=== PATIENT | female | born 1980 | race Two or more races ===

== ENCOUNTER 2017-05-06 17:05 | Emergency (ER) | payer SELFPAY ==
[~2017-05-06] VITALS: Ht 167.6 cm; Wt 127.0 kg
[2017-05-06 17:10] VITALS: BP 137/84
--- NOTE | 2017-05-06 17:30 | NUR ---
URINE SAMPLE OBTAINED, SENT.
[2017-05-06 17:39] LABS: APPEARANCE,URINE Clear (CLEAR); BILIRUBIN,URINE Negative (NEGATIVE); BLOOD, URINE Small Ery/uL (NEGATIVE); COLOR,URINE Yellow (YELLOW); KETONES,URINE Negative (NEGATIVE); LEUKOCYTE ESTERASE ,URINE Small (NEGATIVE); NITRITE, URINE Negative (NEGATIVE); PROTEIN,URINE Negative (NEGATIVE); UGLUCOSE Negative (NEGATIVE)
[2017-05-06 17:40] LABS: PREGNANCY TEST URINE QUAL NEGATIVE (NEGATIVE)
[2017-05-06 17:57] LABS: BACTERIA,URINE None seen /HPF (None Seen); SQUAMOUS EPITHELIAL CELL,UR Moderate /HPF (None Seen)
== END 2017-05-06 18:19 | disposition home or self-care (01) ==
LOC: ER 17:09
DX: N30.00 Acute cystitis without hematuria (principal); I10 Essential (primary) hypertension
CPT/HCPCS: 81000-TC; 84703-TC; A4606; Z7610

== ENCOUNTER 2017-08-05 09:15 | Emergency (ER) | payer MEDICAID ==
[~2017-08-05] VITALS: Ht 170.2 cm; Wt 129.3 kg
--- NOTE | 2017-08-05 09:20 | NUR ---
PRESENTS TO ER STATING SHE WOKE UP THIS AM W/ PUFFINESS TO BOTH EYES ~GOING ON FOR THE LAST 3 MOS. C/O SOB AND FEELING OF NECK TIGHTNESS FOR THE LAST HOUR. A/OX 4. BREATHING EVEN AND UNLABORED. VITALS STABLE. SAFETY AND COMFORT MEASURES IN PLACE. AWAITING MD ORDERS.
--- NOTE | 2017-08-05 09:25 | NUR ---
NEW IV STARTED ON LAC, 20 G. BLOOD DRAWN AND SENT TO LAB.
[2017-08-05] MEDS ORDERED: methylPREDNISolone SOD SUCC 125 MG/2ML VIAL ONE (09:27)
[2017-08-05] MEDS ORDERED: diphenhydrAMINE HCL 50 MG/ML VIAL ONE (09:27)
[2017-08-05] MEDS ORDERED: FAMOTIDINE/PF INJ 40 MG in IV D5W 250 ML IV ONE (09:30)
[2017-08-05] MEDS ORDERED: IV NS 0.9% 1,000 ML BAG IV ONE (09:30)
[2017-08-05] MEDS ORDERED: methylPREDNISolone SOD SUCC 125 MG/2ML VIAL IV ONE (09:30)
[2017-08-05] MEDS ORDERED: FAMOTIDINE/PF INJ 20 MG/2 ML VIAL IV ONE (09:30)
[2017-08-05] MEDS ORDERED: diphenhydrAMINE HCL 50 MG/ML VIAL IV ONE (09:30)
--- NOTE | 2017-08-05 09:39 | NUR ---
PATIENT MEDICATED PER MD ORDERS. PER REYNA HUNTER TO GIVEN FAMOTIDINE 40 MG SLOW IV PUSH.
[2017-08-05 09:41] LABS: BASOPHILS # (AUTO) 0.1 /CMM (0.0-0.2); BASOPHILS % (AUTO) 0.5 % (0.0-2.0); EOSINOPHILS # (AUTO) 0.1 /CMM (0.0-0.7); EOSINOPHILS % (AUTO) 1.4 % (0.0-6.0); HEMATOCRIT 39 % (33-45); HEMOGLOBIN 12.6 g/dL (11.5-14.8); LYMPHOCYTES # (AUTO) 2.5 /CMM (0.8-4.8); LYMPHOCYTES % (AUTO) 24.1 % (20.0-44.0); MEAN CORPUSCULAR HEMOGLOBIN 22 PG (26.0-33.0); MEAN CORPUSCULAR HGB CONC 32 g/dl (31.0-36.0); MEAN CORPUSCULAR VOLUME 70 fL (82-100); MONOCYTES # (AUTO) 0.6 /CMM (0.1-1.30); MONOCYTES % (AUTO) 5.4 % (2.0-12.0); NEUTROPHILS # (AUTO) 7.2 /CMM (1.8-8.9); NEUTROPHILS % (AUTO) 68.6 % (43.0-81.0); PLATELET COUNT (AUTO) 289 /CMM (150-450); RED BLOOD CELL COUNT(AUTO) 5.62 MIL/uL (4.0-5.2); WHITE BLOOD COUNT (AUTO) 10.5 K/uL (4.3-11.0)
[2017-08-05 09:50] LABS: CALCIUM, SERUM 8.2 mg/dL (8.5-10.1); CREATININE 0.7 mg/dL (0.6-1.3); POTASSIUM 3.9 mmol/L (3.5-5.1)
--- NOTE | 2017-08-05 13:13 | NUR ---
IV removed. Catheter intact and site benign. Pressure and 4x4 applied to site. No bleeding noted. Patient discharged to home in stable condition. Written and verbal after care instructions given. Patient verbalizes understanding of instruction.
[2017-08-05 13:15] VITALS: BP 138/64
== END 2017-08-05 13:16 | disposition home or self-care (01) ==
LOC: ER 09:17
DX: T78.40XA Allergy, unspecified, initial encounter (principal)
CPT/HCPCS: 36415; 71010; 80048; 84703; 85025; 96361; 96374; 96375; 99285; A4606; J1200; J2930; J3490; J7030; Z7610

== ENCOUNTER 2018-01-27 10:27 | Emergency (ER) | payer MEDICAID ==
[~2018-01-27] VITALS: Ht 170.2 cm; Wt 83.9 kg
--- NOTE | 2018-01-27 10:32 | NUR ---
PAIN TO L WRIST AND UPPER ARM X 2 DAYS, DENIES ANY INJURY
[2018-01-27 11:01] VITALS: BP 130/80
--- NOTE | 2018-01-27 11:01 | NUR ---
Patient discharged to home in stable condition. Written and verbal after care instructions given. Patient verbalizes understanding of instruction.
== END 2018-01-27 11:02 | disposition home or self-care (01) ==
LOC: ER 10:31
DX: R20.2 Paresthesia of skin (principal)
CPT/HCPCS: A4606; Z7610

== ENCOUNTER 2018-03-08 00:05 | Emergency (ER) | payer MEDICAID ==
[~2018-03-08] VITALS: Ht 165.1 cm; Wt 90.7 kg
--- NOTE | 2018-03-08 00:23 | NUR ---
"HEADACHE X3 DAYS AND BEEN IN MY PERIODS FOR 3 MONTHS". "FEELING DIZZY". PT AMBULATED TO BED WITH A STEADY GAIT. PT PLACED ON MONITOR WITH VS WNL. PT RESTING IN BED IN NO ACUTE DISTRESS. AWAITING MD AGUILA.
[2018-03-08] MEDS ORDERED: METOCLOPRAMIDE HCL 10 MG/2 ML VIAL ONE (00:53)
[2018-03-08 00:59] LABS: BASOPHILS % (AUTO) 0.5 % (0.0-2.0); EOSINOPHILS % (AUTO) 1.7 % (0.0-6.0); LYMPHOCYTES # (AUTO) 2.3 /CMM (0.8-4.8); LYMPHOCYTES % (AUTO) 26.8 % (20.0-44.0); MEAN CORPUSCULAR HGB CONC 32 g/dl (31.0-36.0); MEAN CORPUSCULAR VOLUME 72 fL (82-100); MONOCYTES # (AUTO) 0.6 /CMM (0.1-1.30); NEUTROPHILS # (AUTO) 5.4 /CMM (1.8-8.9); PLATELET COUNT (AUTO) 317 /CMM (150-450); RED BLOOD CELL COUNT(AUTO) 2.83 MIL/uL (4.0-5.2); WHITE BLOOD COUNT (AUTO) 8.5 K/uL (4.3-11.0)
[2018-03-08] MEDS ORDERED: IV NS 0.9% 1,000 ML BAG IV ONE (01:00)
[2018-03-08] MEDS ORDERED: METOCLOPRAMIDE HCL 10 MG/2 ML VIAL IV ONE (01:00)
[2018-03-08 01:03] LABS: HEMATOCRIT 20 % (33-45); HEMOGLOBIN 6.4 g/dL (11.5-14.8)
[2018-03-08 01:08] LABS: CALCIUM, SERUM 8.7 mg/dL (8.5-10.1); CREATININE 0.8 mg/dL (0.6-1.3); POTASSIUM 3.8 mmol/L (3.5-5.1)
--- NOTE | 2018-03-08 02:07 | NUR ---
ULTRA SOUND TECH AT BEDSIDE.
--- NOTE | 2018-03-08 02:51 | NUR ---
US TECH LEFT BEDSIDE. AWAITING RESULTS.
[2018-03-08 03:09] LABS: APPEARANCE,URINE TURBID (CLEAR); BILIRUBIN,URINE NEGATIVE (NEGATIVE); BLOOD, URINE 3+ Ery/uL (NEGATIVE); COLOR,URINE RED (YELLOW); KETONES,URINE NEGATIVE (NEGATIVE); LEUKOCYTE ESTERASE ,URINE TRACE (NEGATIVE); NITRITE, URINE NEGATIVE (NEGATIVE); PROTEIN,URINE 2+ mg/dl (NEGATIVE); UGLUCOSE NEGATIVE (NEGATIVE); UROBILINOGEN,URINE 0.2 EU/dL (0.2)
[2018-03-08 03:12] LABS: BACTERIA,URINE Few /HPF (None Seen); RBC,URINE TOO NUMEROUS TO COUN /HPF (0-2); SQUAMOUS EPITHELIAL CELL,UR Few /HPF (None Seen)
--- NOTE | 2018-03-08 03:14 | NUR ---
1 UNIT PRBC STARTED.
--- NOTE | 2018-03-08 03:50 | NUR ---
1ST UNIT PRBC FINISHED WITH NO ADVERSE REACTIONS NOTED.
--- NOTE | 2018-03-08 04:05 | NUR ---
2ND UNIT PRBC STARTED.
--- NOTE | 2018-03-08 04:35 | NUR ---
2ND UNIT OF PRBC FINISHED WITH NO ADVERSE REACTIONS NOTED.
[2018-03-08 05:11] LABS: BASOPHILS % (AUTO) 0.4 % (0.0-2.0); EOSINOPHILS % (AUTO) 1.9 % (0.0-6.0); HEMATOCRIT 24 % (33-45); HEMOGLOBIN 7.6 g/dL (11.5-14.8); LYMPHOCYTES # (AUTO) 2.2 /CMM (0.8-4.8); LYMPHOCYTES % (AUTO) 25.4 % (20.0-44.0); MEAN CORPUSCULAR HGB CONC 32 g/dl (31.0-36.0); MEAN CORPUSCULAR VOLUME 77 fL (82-100); MONOCYTES # (AUTO) 0.6 /CMM (0.1-1.30); MONOCYTES % (AUTO) 7.5 % (2.0-12.0); NEUTROPHILS # (AUTO) 5.6 /CMM (1.8-8.9); NEUTROPHILS % (AUTO) 64.8 % (43.0-81.0); PLATELET COUNT (AUTO) 290 /CMM (150-450); RDW COEFFICIENT OF VARIATION 18.4 (11.5-15.0); RED BLOOD CELL COUNT(AUTO) 3.12 MIL/uL (4.0-5.2); WHITE BLOOD COUNT (AUTO) 8.7 K/uL (4.3-11.0)
[2018-03-08 05:35] LABS: EOSINOPHILS % (MANUAL) 1 % (0-4); LYMPHOCYTES % (MANUAL) 29 % (16-48); MONOCYTES % (MANUAL) 5 % (0-11.0); NEUTROPHILS % (MANUAL) 65 (42-76)
--- NOTE | 2018-03-08 05:50 | NUR ---
Patient discharged to home in stable condition. Written and verbal after care instructions given. Patient verbalizes understanding of instruction. pt. ambulatory with a steady gait. pt left hospital in stable condition with .
[2018-03-08 05:51] VITALS: BP 122/74
== END 2018-03-08 05:53 | disposition home or self-care (01) ==
LOC: ER 00:08
DX: D25.9 Leiomyoma of uterus, unspecified (principal); D64.9 Anemia, unspecified; N83.201 Unspecified ovarian cyst, right side
CPT/HCPCS: 36415; 71045-TC; 76856-TC; 80048-TC; 81000-TC; 83880; 85025-TC; 86850-TC; 86921-TC; 87081-TC; A4606; J2765; J7030; J7050; P9016-BL; Z7610

== ENCOUNTER 2018-10-22 22:16 | Emergency (ER) | payer MEDICAID, OTHER ==
[~2018-10-22] VITALS: Ht 170.2 cm; Wt 124.7 kg
--- NOTE | 2018-10-22 22:40 | NUR ---
PT PRESENTED TO THE ER WITH A C/O NECK PAIN AND HEADACHE S/P TRIP AND FALL OVER CARPET AT WORK AT 2110 TONIGHT. PT STATED THAT SHE "BLACKED OUT" (ACCORDING TO HER SON) WHEN SHE HIT HER HEAD ON THE WALL. PT AMBULATED TO ER 2 AND IS AWAITING EVALUATION.
[2018-10-22] MEDS ORDERED: DIAZEPAM 5 MG TABLET ONE (23:21)
[2018-10-22] MEDS ORDERED: HYDROCODONE/APAP 5/325MG 1 EACH TABLET ONE (23:22)
[2018-10-22] MEDS ORDERED: DIAZEPAM 10 MG TABLET PO ONE (23:30)
[2018-10-22] MEDS ORDERED: HYDROCODONE/APAP 5/325MG 1 EACH TABLET PO ONE (23:30)
--- NOTE | 2018-10-23 00:08 | NUR ---
PT RETURNED FROM CT.
[2018-10-23] MEDS ORDERED: KETOROLAC TROMETHAMINE INJ 30 MG/ML VIAL ONE (01:10)
--- NOTE | 2018-10-23 01:26 | NUR ---
Patient discharged to home in stable condition. Written and verbal after care instructions given. Patient verbalizes understanding of instruction AND RX. PT AMBULATED OUT WITH A STEADY GAIT. PT'S SON IS PICKING HER UP. PT WAS INSTRUCTED NOT TO DRIVE. VSS.
--- NOTE | 2018-10-23 01:28 | NUR ---
PT REC'D CHIKIS WRAPS TO BILATERAL KNEES.
[2018-10-23] MEDS ORDERED: KETOROLAC TROMETHAMINE INJ 60 MG/2 ML VIAL IM ONE (01:30)
[2018-10-23 01:33] VITALS: BP 138/89
== END 2018-10-23 01:34 | disposition home or self-care (01) ==
LOC: ER 22:23
DX: S13.4XXA Sprain of ligaments of cervical spine, initial encounter (principal); S80.02XA Contusion of left knee, initial encounter; S80.01XA Contusion of right knee, initial encounter; S09.8XXA Other specified injuries of head, initial encounter; F41.9 Anxiety disorder, unspecified; E66.01 Morbid (severe) obesity due to excess calories; Z68.41 Body mass index [BMI] 40.0-44.9, adult; W18.09XA Striking against other object with subsequent fall, initial encounter; Y93.89 Activity, other specified; Y92.89 Other specified places as the place of occurrence of the external cause; Y99.0 Civilian activity done for income or pay
CPT/HCPCS: 70450-TC; 72125-TC; 73560-TC; J1885

== ENCOUNTER 2019-04-02 22:06 | Emergency (ER) | payer MEDICAID, OTHER ==
[~2019-04-02] VITALS: Ht 170.2 cm; Wt 127.0 kg
--- NOTE | 2019-04-02 23:06 | NUR ---
BIBS. C/O "HAVING FLU LIKE SYMPTOMS FOR AROUND 3X WEEKS, THEY WONT GO AWAY" -SOB NOTED -N/V AOX4. AMBULATORY VSS.
[2019-04-02] MEDS ORDERED: IPRATROPIUM NEB FS 0.5 MG/2.5 ML AMPUL.NEB NEB ONE (23:30)
[2019-04-02] MEDS ORDERED: ALBUTEROL FS 2.5 MG/3 ML VIAL.NEB NEB ONE (23:30)
[2019-04-02] MEDS ORDERED: IPRATROPIUM NEB FS 0.5 MG/2.5 ML AMPUL.NEB ONE (23:42)
[2019-04-02] MEDS ORDERED: ALBUTEROL FS 2.5 MG/3 ML VIAL.NEB ONE (23:42)
[2019-04-03 02:18] VITALS: BP 134/99
== END 2019-04-03 02:18 | disposition home or self-care (01) ==
LOC: ER 22:06
DX: J45.909 Unspecified asthma, uncomplicated (principal); H10.10 Acute atopic conjunctivitis, unspecified eye; R00.0 Tachycardia, unspecified; Z90.710 Acquired absence of both cervix and uterus
CPT/HCPCS: 71045-TC

== ENCOUNTER 2021-03-11 12:44 | Emergency (ER) | payer MEDICAID ==
[~2021-03-11] VITALS: Ht 162.6 cm; Wt 140.6 kg
[2021-03-11 12:56] VITALS: BP 157/96
[2021-03-11] MEDS ORDERED: AZIT250T PO (13:06)
[2021-03-11] MEDS ORDERED: ALBU8.5H8 INH (13:06)
[2021-03-11] MEDS ORDERED: ALBU0.633 NEB (13:06)
== END 2021-03-11 13:20 | disposition home or self-care (01) ==
LOC: ER 12:46
DX: J45.909 Unspecified asthma, uncomplicated (principal)

== ENCOUNTER 2021-07-16 12:15 | Emergency (ER) | payer MEDICAID ==
[~2021-07-16] VITALS: Ht 167.6 cm; Wt 131.5 kg
[~2021-07-16 12:15] MED LIST: ALBU0.633 NEB; ALBU8.5H8 INH; AZIT250T PO
--- NOTE | 2021-07-16 12:39 | NUR ---
C/O LOWER ABD PAIN RAD TO RT FLANK X 2 WKS. PT AAOX4, VSS. RR EVEN & UNLABORED. DENIES CP, SOB, DIZZINESS, N/V AT THIS TIME. AWAITING EVAL BY SANCHEZ. WILL CONT TO MONITOR.
[2021-07-16] MEDS ORDERED: ONDANSETRON HCL/PF 4 MG/2 ML VIAL IVP ONE (13:00)
[2021-07-16] MEDS ORDERED: ONDANSETRON HCL/PF 4 MG/2 ML VIAL ONE (13:08)
--- NOTE | 2021-07-16 13:22 | NUR ---
PT SEEN & EVAL'D BY DR. PARSONS. REFUSED ZOFRAN AT THIS TIME.
[2021-07-16 13:30] LABS: BASOPHILS % (AUTO) 0.3 % (0.0-2.0); EOSINOPHILS % (AUTO) 1.4 % (0.0-6.0); HEMATOCRIT 43 % (33-45); HEMOGLOBIN 14.1 g/dL (11.5-14.8); LYMPHOCYTES # (AUTO) 2.1 K/uL (0.8-4.8); LYMPHOCYTES % (AUTO) 25.3 % (20.0-44.0); MEAN CORPUSCULAR HGB CONC 33 g/dl (31.0-36.0); MEAN CORPUSCULAR VOLUME 78 fL (82-100); MONOCYTES # (AUTO) 0.4 K/uL (0.1-1.30); MONOCYTES % (AUTO) 5.2 % (2.0-12.0); NEUTROPHILS # (AUTO) 5.6 K/uL (1.8-8.9); NEUTROPHILS % (AUTO) 67.8 % (43.0-81.0); PLATELET COUNT (AUTO) 254 K/uL (150-450); RED BLOOD CELL COUNT(AUTO) 5.47 MIL/uL (4.0-5.2); WHITE BLOOD COUNT (AUTO) 8.3 K/uL (4.3-11.0)
[2021-07-16 13:37] LABS: CALCIUM, SERUM 9.1 mg/dL (8.5-10.1); CREATININE 0.7 mg/dL (0.6-1.3); POTASSIUM 4.2 mmol/L (3.5-5.1)
[2021-07-16 13:44] LABS: BILIRUBIN,URINE Negative (NEGATIVE); COLOR,URINE YELLOW (YELLOW); LEUKOCYTE ESTERASE ,URINE Negative (NEGATIVE); NITRITE, URINE Negative (NEGATIVE); PH,URINE 5.5 (5.0-8.0); PROTEIN,URINE Negative (NEGATIVE); UGLUCOSE Negative (NEGATIVE); UROBILINOGEN,URINE 0.2 EU/dL (0.2)
[2021-07-16 13:48] LABS: ALBUMIN 3.5 g/dL (3.4-5.0); TOTAL PROTEIN, SERUM 7.9 g/dL (6.4-8.2)
[2021-07-16 14:41] LABS: BILIRUBIN,TOTAL 0.2 mg/dL (0.2-1.0)
--- NOTE | 2021-07-16 17:04 | NUR ---
Patient discharged to home in stable condition. Written and verbal after care instructions given. Patient verbalizes understanding of instruction .IV removed. Catheter intact and site benign. Pressure and 4x4 applied to site. No bleeding noted.
[2021-07-16 17:05] VITALS: BP 142/76
== END 2021-07-16 17:05 | disposition home or self-care (01) ==
LOC: ER 12:16
DX: R10.2 Pelvic and perineal pain (principal); R10.9 Unspecified abdominal pain; Z79.899 Other long term (current) drug therapy
CPT/HCPCS: 36415; 74176; 76856; 80048; 80076; 81003; 83690; 84703; 85025; 99285; J2405; J7030

== ENCOUNTER 2022-08-06 01:12 | Emergency (ER) | payer MEDICAID ==
[~2022-08-06] VITALS: Ht 167.6 cm; Wt 139.3 kg
--- NOTE | 2022-08-06 01:36 | NUR ---
TO ER BED 9. BIBS C/O BLACKWELL, N/V, CHEST PRESSURE, PALPITATIONS S/P "FAMILY ARGUMENT". PT IS ALERT AND ORIENTED. RR EVEN AND NON LABORED. CONNECTED TO MONITOR. VSS.
--- NOTE | 2022-08-06 01:39 | NUR ---
EMT AT PT'S BEDSIDE FOR EKG
--- NOTE | 2022-08-06 01:49 | NUR ---
XRAY AT BEDSIDE
[2022-08-06] MEDS ORDERED: IBUPROFEN 600 MG TABLET ONE (01:58)
[2022-08-06] MEDS ORDERED: IBUPROFEN 600 MG TABLET PO ONE (02:00)
[2022-08-06 02:19] LABS: BASOPHILS % (AUTO) 0.3 % (0.0-2.0); EOSINOPHILS % (AUTO) 1.5 % (0.0-6.0); HEMATOCRIT 38 % (33-45); HEMOGLOBIN 12.5 g/dL (11.5-14.8); LYMPHOCYTES # (AUTO) 2.5 K/uL (0.8-4.8); LYMPHOCYTES % (AUTO) 27.2 % (20.0-44.0); MEAN CORPUSCULAR HGB CONC 33 g/dl (31.0-36.0); MEAN CORPUSCULAR VOLUME 77 fL (82-100); MONOCYTES # (AUTO) 0.6 K/uL (0.1-1.30); NEUTROPHILS # (AUTO) 5.8 K/uL (1.8-8.9); PLATELET COUNT (AUTO) 240 K/uL (150-450); RED BLOOD CELL COUNT(AUTO) 4.97 MIL/uL (4.0-5.2); WHITE BLOOD COUNT (AUTO) 9.1 K/uL (4.3-11.0)
[2022-08-06 02:37] LABS: ALANINE AMINOTRANSFERASE 28 U/L (12-78); ALBUMIN 3.3 g/dL (3.4-5.0); ALKALINE PHOSPHATASE 81 U/L (46-116); ASPARTATE AMINOTRANSFERASE 16 U/L (15-37); BILIRUBIN,DIRECT 0.1 mg/dL (0.0-0.2); BILIRUBIN,TOTAL 0.3 mg/dL (0.2-1.0); CARBON DIOXIDE 27 mmol/L (21-32); CHLORIDE 103 mmol/L (98-107); CREATININE 0.8 mg/dL (0.6-1.3); GLUCOSE 106 mg/dL (74-106); POTASSIUM 3.8 mmol/L (3.5-5.1); SODIUM SERUM 135 mmol/L (136-145); TOTAL PROTEIN, SERUM 7.5 g/dL (6.4-8.2); UREA NITROGEN, BLOOD 14 mg/dL (7-18)
--- NOTE | 2022-08-06 03:15 | NUR ---
Patient discharged to home in stable condition. Written and verbal after care instructions given. Patient verbalizes understanding of instruction.
[2022-08-06 03:16] VITALS: BP 158/90
== END 2022-08-06 03:16 | disposition home or self-care (01) ==
LOC: ER 01:18
DX: R07.89 Other chest pain (principal); I10 Essential (primary) hypertension; Z79.899 Other long term (current) drug therapy
CPT/HCPCS: 36415; 71045-TC; 80048-TC; 80076-TC; 84484-TC; 84702-TC; 85025-TC

== ENCOUNTER 2024-04-08 17:37 | Emergency (ER) | payer MEDICAID ==
[~2024-04-08] VITALS: Ht 165.1 cm; Wt 135.2 kg
[2024-04-08] MEDS: KETOROLAC TROMETHAMINE 15 MG/ML VIAL IM ONE (18:07)
[2024-04-08] MEDS ORDERED: ACETAMINOPHEN ES 500 MG TABLET ONE (19:00)
[2024-04-08] MEDS ORDERED: LIDOCAINE 5% (PATCH) 1 EA PATCH TP ONE (19:00)
[2024-04-08] MEDS ORDERED: CYCLOBENZAPRINE 10 MG TABLET ONE (19:00)
[2024-04-08] MEDS ORDERED: KETOROLAC TROMETHAMINE 15 MG/ML VIAL ONE (19:00)
[2024-04-08] MEDS: CYCLOBENZAPRINE 10 MG TABLET PO ONE (19:07)
[2024-04-08] MEDS: ACETAMINOPHEN ES 500 MG TABLET PO ONE (19:07)
[2024-04-08] MEDS: LIDOCAINE 5% (PATCH) 1 EA PATCH TP ONE (19:07)
[2024-04-08] MEDS ORDERED: CYCL5TAB PO (20:07)
[2024-04-08] MEDS ORDERED: ACET-2605 PO (20:07)
[2024-04-08] MEDS ORDERED: IBUP-1955 PO (20:07)
[2024-04-08 20:21] VITALS: BP 142/79; TEMP 98.8; O2SAT 100
== END 2024-04-08 20:50 | disposition home or self-care (01) ==
LOC: ER 17:42
DX: M54.6 Pain in thoracic spine (principal); Z79.899 Other long term (current) drug therapy; Z79.51 Long term (current) use of inhaled steroids
CPT/HCPCS: 99284; 96372; J1885

== ENCOUNTER 2025-08-26 21:44 | Emergency (ER) | payer MEDICAID, OTHER ==
[~2025-08-26] VITALS: Ht 167.6 cm; Wt 127.0 kg
[~2025-08-26 21:44] MED LIST changes: +ACET-2605 PO; +CYCL5TAB PO; +IBUP-1955 PO
--- NOTE | 2025-08-26 22:50 | NUR ---
PT C/O NAUSEA, VOMITING, THROAT IRRITATION AND COUGHING AFTER INHALING CHEMICALS
[2025-08-26 23:07] VITALS: O2SAT 96
[2025-08-26] MEDS: IPRATROPIUM NEB FS 0.5 MG/2.5 ML AMPUL.NEB NEB STA (23:07)
[2025-08-26] MEDS: ALBUTEROL FS 2.5 MG/0.5 ML VIAL.NEB NEB STA (23:07)
[2025-08-26] MEDS ORDERED: ALBUTEROL FS 2.5 MG/0.5 ML VIAL.NEB ONE (23:10)
[2025-08-26] MEDS ORDERED: IPRATROPIUM NEB FS 0.5 MG/2.5 ML AMPUL.NEB ONE (23:10)
[2025-08-26 23:17] VITALS: O2SAT 99
--- NOTE | 2025-08-27 00:11 | NUR ---
Patient discharged to home in stable condition. Written and verbal after care instructions given. Patient verbalizes understanding of instruction.
[2025-08-27 00:13] VITALS: BP 157/95; TEMP 98; O2SAT 99
== END 2025-08-27 00:14 | disposition home or self-care (01) ==
LOC: ER 22:19
DX: R06.02 Shortness of breath (principal); R11.2 Nausea with vomiting, unspecified; R05.9 Cough, unspecified; Z77.098 Contact with and (suspected) exposure to other hazardous, chiefly nonmedicinal, chemicals; Z90.710 Acquired absence of both cervix and uterus
CPT/HCPCS: 99285; 71045; 94640; J7512